=== PATIENT | female | born 1975 | race Hispanic/Latino ===

== ENCOUNTER 2017-08-17 13:58 | Emergency (ER) | payer MEDICARE, OTHER ==
[~2017-08-17] VITALS: Ht 157.5 cm; Wt 108.9 kg
[~2017-08-17 13:58] MED LIST: DYAZIDE 37.5-21 EACH PO
[2017-08-17] MEDS ORDERED: KETOROLAC TROMETHAMINE 60 MG/2 ML VIAL IM ONE (14:30)
[2017-08-17] MEDS ORDERED: LACTULOSE SYRUP 20 GM/30 ML UDC PO ONE (16:15)
[2017-08-17] MEDS ORDERED: CITRATE OF MAGNESIA 300ML BOTTLE PO ONE (16:15)
[2017-08-17] MEDS ORDERED: DOCUSATE SODIUM LIQD 100 MG/10 ML UDC NG ONE (16:15)
--- NOTE | 2017-08-17 16:37 | Diagnostic Imaging Report ---
PROCEDURE:X-RAY ABDOMEN - KUB COMPARISON:None. INDICATIONS:ABDOMINAL PAIN FINDINGS: Limited by body habitus. Nonobstructive bowel gas pattern. No signs of pneumoperitoneum. Moderate to large amount of stool throughout the colon. No calcifications overlying the renal shadows. Right upper quadrant surgical clips, probably related to cholecystectomy. No acute osseous abnormality. Lung bases are clear. CONCLUSION: Nonobstructive bowel gas pattern. possible constipation. Dictated by: Roni Lucas M.D. on 08/17/2017 at 16:37 Electronically approved by: Roni Lucas M.D. on 08/17/2017 at 16:37
[2017-08-17 18:19] VITALS: BP 142/102
== END 2017-08-17 18:30 | disposition home or self-care (01) ==
LOC: ER 13:58
DX: K59.00 Constipation, unspecified (principal); K56.41 Fecal impaction; I10 Essential (primary) hypertension; F32.9 Major depressive disorder, single episode, unspecified
CPT/HCPCS: 74018; 81025; 99284; J1885

== ENCOUNTER 2017-11-01 00:54 | Emergency (ER) | payer MEDICARE ==
[~2017-11-01] VITALS: Ht 157.5 cm; Wt 108.9 kg
--- OUTSIDE RECORDS SUMMARY | 2017-11-01 00:57 | XMS REPORT | Continuity of Care Document ---
Author Author [facility] Organization [facility] Address [address] [place] [address] Phone Unavailable Care Team Providers Care Mobile Service Rv Technician Name Role Phone NONSTAFF PCP Unavailable Insurance Providers Guarantor Heaven Jaramillo Address [address] [place] [address] Email [email or web address] Policy Number [id number] Subscriber's Name Fior Jaramillodad Relationship 18 Self / Same As Patient Group Number [id number] Group Name CYNTHIA MANE Advance Directives Directive Response Recorded Date/Time Does the patient have an advance directive? No 12/27/07 12:54pm If yes, is advance directive on file with [facility]? No 12/27/07 12:54pm If not on file with [facility] will patient provide a copy? No 08/17/17 6:21pm Do you have a Directive to Physician? No 08/17/17 6:21pm Do you have a Medical Power of Shade Bander? No 08/17/17 6:21pm Do you have an out of hospital Do Not Resuscitate Order? No 08/17/17 6:21pm Do you have any special needs we should be aware of? No 08/17/17 6:21pm Do you have a support person here with you today? Yes 08/17/17 6:21pm Did patient receive Notice of Privacy Practices? Yes 08/17/17 6:21pm Did patient receive patient rights and responsibilities? Yes 08/17/17 6:21pm Problems No problem information available. Medications Current Home Medications Medication Dose Units Route Directions Days Qty Instructions Start Date Triamterene/Hydrochlorothiazid (Dyazide 37.5-25 Capsule) 1 Each Capsule 1 Tab Oral Daily Social History Smoking Status Start Date Stop Date Never Smoker Hospital Discharge Instructions No hospital discharge instruction information available. Plan of Care Discharge Date 08/17/17 6:30pm Disposition HOME, SELF-CARE Condition at Discharge Improved Forms Provided Work/School Excuse Prescriptions See Medication Section Referrals LEONID FREED MD Address: [address] [place] [address] NEVIN FREED MD Address: [address] [place] [address] Additional Instructions/Education FOLLOW UP WITH YOU PCP WITHIN 1/2 DAYS FOLLOW UP WITH GI DOCTOR FOR CONSTIPATION Functional Status No functional status information available. Allergies, Adverse Reactions, Alerts Allergen Type Severity Reaction Status Last Updated No Known Drug Allergies Allergy Unknown Active 01/21/08 Immunizations No immunization information available. Vital Signs Acute Vital Signs Vital Response Date/Time Temperature (Fahrenheit) 98.0 degrees F (97.6 - 99.5) 08/17/2017 6:19pm Pulse Pulse Rate (adult) 111 bpm (60 - 90) 08/17/2017 6:19pm Respiratory Rate 20 bpm (12 - 24) 08/17/2017 6:19pm Blood Pressure 142/102 mm Hg 08/17/2017 6:19pm Height 5 ft 2 in 08/17/2017 2:07pm Weight 240 lb 08/17/2017 2:07pm Body Mass Index 43.9 kg/m^2 08/17/2017 2:07pm Results Laboratory Results Test Name Result Units Flags Reference Collection Date/Time Result Date/ Time Comments Urine Test NEGATIVE NEGATIVE 08/17/2017 3:40pm 08/17/2017 3 :55pm Procedures No procedure information available. Encounters Encounter Location Arrival/Admit Date Discharge/Depart Date Attending Provider Departed Emergency Room [facility] 08/17/17 1:58pm 6:30pm EUGENIE LI MD
--- OUTSIDE RECORDS SUMMARY | 2017-11-01 00:57 | XMS REPORT ---
Author Author [facility] Address Unknown Phone Unavailable Care Team Providers Care Electroneurodiagnostic Technician Name Role Phone EUGENIE LI Unavailable Unavailable Problems This patient has no known problems. Allergies, Adverse Reactions, Alerts This patient has no known allergies or adverse reactions. Medications This patient has no known medications. Results Test Description Test Time Test Comments Text Results Atomic Results Result Comments ABDOMEN-1VIEW (KUB) [place] [address] Patient Name: SUZE VERAS MR #: [id number] : 1975 Age/Sex: 41/F Req #: [id number] Adm Physician: Ordered by: AUBREY NERI INDUSTRIAL X RAY OPERATOR Report #: [id number] Location: ER Room/Bed: Procedure: [id number] DX/ABDOMEN-1VIEW (KUB) Exam Date: 08/17/17 Exam Time: 1600 REPORT STATUS: Signed PROCEDURE: X-RAY ABDOMEN - KUB COMPARISON: None. INDICATIONS: ABDOMINAL PAIN FINDINGS: Limited by body habitus. Nonobstructive bowel gas pattern. No signs of pneumoperitoneum. Moderate to large amount of stool throughout the colon. No calcifications overlying the renal shadows. Right upper quadrant surgical clips, probably related to cholecystectomy. No acute osseous abnormality. Lung bases are clear. CONCLUSION: Nonobstructive bowel gas pattern. possible constipation. Dictated by: Roni Castellon M.D. on 08/17/2017 at 16:37 Electronically approved by: Roni Castellon M.D. on 08/17/2017 at 16:37 Dictated By: RONI CASTELLON MD 1637 COPY TO: AUBREY NERI NP
[2017-11-01] MEDS ORDERED: CYCLOBENZAPRINE HCL 10 MG TAB PO ONE (01:30)
[2017-11-01] MEDS ORDERED: HYDROCODONE/APAP 5MG-325MG TAB PO ONE (01:30)
[2017-11-01 02:17] VITALS: BP 117/69
== END 2017-11-01 02:18 | disposition home or self-care (01) ==
LOC: FSED 00:54
DX: M54.42 Lumbago with sciatica, left side (principal)
CPT/HCPCS: 72100; 99283

== ENCOUNTER 2018-08-23 23:47 | Emergency (ER) | payer MEDICARE ==
[~2018-08-23] VITALS: Ht 157.5 cm; Wt 116.3 kg
[2018-08-24] MEDS ORDERED: ALBUTEROL SULF 0.083% NEB SOLN 3 ML NEB NEB STA (00:34)
[2018-08-24] MEDS ORDERED: IPRATROPIUM BROMIDE 0.02% 2.5 ML NEB NEB ONE (00:45)
[2018-08-24] MEDS ORDERED: PREDNISONE 20 MG TAB PO ONE ×2 (00:45)
[2018-08-24] MEDS ORDERED: ACETAMINOPHEN 325 MG TAB PO ONE (00:45)
--- NOTE | 2018-08-24 01:09 | Diagnostic Imaging Report ---
EXAMINATION: CXR 2 VIEW - HOPD INDICATION: Cough, cold, shortness of breath ^[id number] ^[id number] COMPARISON: Chest x-ray of 07/11/2017 none available for review FINDINGS: PA and lateral views TUBES and LINES: None. LUNGS: Lungs are well inflated. There is no evidence of pneumonia or pulmonary edema. Azygos lobe and fissure are present. PLEURA: No pleural effusion or pneumothorax. HEART AND MEDIASTINUM: The cardiomediastinal silhouette is unremarkable.. BONES AND SOFT TISSUES: No focal osseous lesions. Soft tissues are unremarkable. UPPER ABDOMEN: No free air under the diaphragm. IMPRESSION: No acute thoracic abnormality. Signed by: Dr. Otto Lee MD on 08/24/2018 1:06 AM
[2018-08-24 03:31] VITALS: BP 118/67
== END 2018-08-24 02:05 | disposition home or self-care (01) ==
LOC: FSED 23:47
DX: R05 Cough (principal); J20.9 Acute bronchitis, unspecified; J00 Acute nasopharyngitis [common cold]
CPT/HCPCS: 71046; 99283

== ENCOUNTER 2018-08-29 20:24 | Emergency (ER) | payer MEDICARE ==
[~2018-08-29] VITALS: Ht 157.5 cm; Wt 116.1 kg
--- OUTSIDE RECORDS SUMMARY | 2018-08-29 20:27 | XMS REPORT ---
Author [facility] Address Unknown Phone Unavailable Care Team Providers Care Stage Set Up Worker Name Role Phone Antonio SOLIS Unavailable Unavailable Janine LI Unavailable Unavailable Payers Payer Name Policy Type Policy Number Effective Date Expiration Date Problems This patient has no known problems. Allergies, Adverse Reactions, Alerts Allergy Name Allergy Type Status Severity Reaction(s) Onset Date Inactive Date Treating Clinician Comments tramadol DA Active U 2018-08-21 00:00:00 No Known Allergies DA Active U 2018-06-25 00:00:00 No Known Allergies DA Active U 2011-01-20 00:00:00 Medications This patient has no known medications. Results Test Description Test Time Test Comments Text Results Atomic Results Result Comments CXR 2 VIEW - HOPD 2018-08-24 01:05:00 [facility] [address] [place], [place] [address] Patient Name: SUZE VERAS MR #: [id number] : 1975 Age/Sex: 42/F Req #: [id number] Adm Physician: Ordered by: AKUA SOLIS MD Report #: [id number] Location: FS Room/Bed: Procedure: [id number] HOPD/CXR 2 VIEW - HOPD Exam Date: 08/24/18 Exam Time: 44 REPORT STATUS: Signed EXAMINATION: CXR 2 VIEW - HOPD INDICATION: Cough, cold, shortness of breath [id number] COMPARISON: Chest x- ray of 07/11/2017 none available for review FINDINGS: PA and lateral views TUBES and LINES: None. LUNGS: Lungs are well inflated. There is no evidence of pneumonia or pulmonary edema. Azygos lobe and fissure are present. PLEURA: No pleural effusion or pneumothorax. HEART AND MEDIASTINUM: The cardiomediastinal silhouette is unremarkable.. BONES AND SOFT TISSUES: No focal osseous lesions. Soft tissues are unremarkable. UPPER ABDOMEN: No free air under the diaphragm. IMPRESSION: No acute thoracic abnormality. Signed by: Dr. Ron Lee MD on 08/24/2018 1:06 AM Dictated By: RON LEE MD 5 Transcribed By: ALEXEY on 08/24/18105 COPY TO: AKUA SOLIS MD URINALYSIS COMPLETE 2018-08-21 04:12:00 UA COLOR (test code=COLU) YELLOW YELLOW UA APPEARANCE (test code=APPU) SLIGHTLY CLOUDY CLEAR UA GLUCOSE DIPSTICK (test code=DGLUU) NEGATIVE mg/dL NEGATIVE UA BILIRUBIN DIPSTICK (test code=BILU) NEGATIVE mg/dL NEGATIVE UA KETONE DIPSTICK (test code=KETU) Negative mg/dL NEGATIVE UA SPECIFIC GRAVITY (test code=SGU) 1.025 1.001-1.035 UA BLOOD DIPSTICK (test code=RADHA) Negative NEGATIVE UA PH DIPSTICK (test code=CESILIA) 5.0 5.0-8.0 UA PROTEIN DIPSTICK (test code=PROU) 100 (2+) mg/dL NEGATIVE UA UROBILINIOGEN DIPSTICK (test code=URO) NEGATIVE mg/dL NEGATIVE UA NITRITE DIPSTICK (test code=HENRRY) NEGATIVE NEGATIVE UA LEUKOCYTE ESTERASE W REFLEX (test code=LEUUR) NEGATIVE NEGATIVE UA WBC (test code=WBCU) 3-5 per HPF 0-5 IN SOME URINARY TRACT INFECTIONS THERE MAY NOT BE ENOUGHWBCs IN THE URINE TO TRIGGER AN AUTOMATIC (REFLEX) URINECULTURE. A SEPERATE ORDER FOR URINE CULTURE IS RECOMMENDEDIF THERE IS STRONG SUPPORT FOR A URINARY TRACT INFECTIONCLINICALLY. UA RBC (test code=RBCU) 0-2 per HPF 0-5 UA EPITHELIAL CELLS (test code=EPIU) Moderate (5-10/hpf) per HPF Few UA BACTERIA (test code=BACU) MODERATE per HPF NONE UA MUCUS (test code=MUCU) MODERATE per LPF NONE-FEW Urine Source? Clean CatchDRUGS OF ABUSE SCREEN [id number] 04:12:00* Test Item Value Reference Range Comments URN COCAINE (test code=COCAURN) NEGATIVE <300 ng/mL URN CANNABINOIDS (test code=CANNABURN) NEGATIVE <50 ng/mL URN AMPHETAMINE (test code=AMPHETURN) NEGATIVE <1000 ng/mL URN BARBITURATE (test code=BARBITURN) NEGATIVE <200 ng/mL URN BENZODIAZEPINE (test code=BENZOURN) POSITIVE <200 ng/mL This test provides only a preliminary test result. A morespecific alternate chemical method must be used in order toobtain a confirmed analytical result. Gas chromatography/mass spectrometry (GC/MS) is thepreferred confirmatory method. Other chemical confirmationmethods are available. Clinical consideration and professional judgment should be applied to any drug of abusetest result, particularly when preliminary positive resultsare used.Unconfirmed screening results must not be used fornon-medical purposes (e.g., employment testing, legaltesting). URN OPIATES (test code=OPIATURN) NEGATIVE <300 ng/mL URN PHENCYCLIDINE (PCP) (test code=PHENCURN) NEGATIVE <25 ng/mL URN METHADONE (test code=METHAURN) NEGATIVE <300 ng/mL Urine Source? Clean CatchTHYROID PROFILE [id number] 04:03:00* Test Item Value Reference Range Comments T3 UPTAKE (test code=T3UP) 29.0 % 30.0-40.0 T4 (THYROXINE) (test code=T4) 4.8 ug/dL 4.5-13.9 T7 (FREE THYROXINE INDEX) (test code=T7) 1.39 FTI 1.3-5.1 THYROID STIMULATING HORMONE (test code=TSH) 1.450 uIU/mL 0.36-3.74 TSH REFERENCE RANGES: EUTHYROID: 0.35 - 4.3 mIU/mL HYPO : > 5.5 mIU/mL HYPER : < 0.35 mIU/mL URINALYSIS [id number] 03:59:00* Test Item Value Reference Range Comments UA COLOR (test code=COLU) YELLOW YELLOW UA APPEARANCE (test code=APPU) SLIGHTLY CLOUDY CLEAR UA GLUCOSE DIPSTICK (test code=DGLUU) NEGATIVE mg/dL NEGATIVE UA BILIRUBIN DIPSTICK (test code=BILU) NEGATIVE mg/dL NEGATIVE UA KETONE DIPSTICK (test code=KETU) Negative mg/dL NEGATIVE UA SPECIFIC GRAVITY (test code=SGU) 1.025 1.001-1.035 UA BLOOD DIPSTICK (test code=RADHA) Negative NEGATIVE UA PH DIPSTICK (test code=CESILIA) 5.0 5.0-8.0 UA PROTEIN DIPSTICK (test code=PROU) 100 (2+) mg/dL NEGATIVE UA UROBILINIOGEN DIPSTICK (test code=URO) NEGATIVE mg/dL NEGATIVE UA NITRITE DIPSTICK (test code=HENRRY) NEGATIVE NEGATIVE UA LEUKOCYTE ESTERASE W REFLEX (test code=LEUUR) NEGATIVE NEGATIVE UA WBC (test code=WBCU) per HPF 0-5 Urine Source? Clean CatchDRUGS OF ABUSE SCREEN [id number] 03:59:00* Test Item Value Reference Range Comments URN COCAINE (test code=COCAURN) NEGATIVE <300 ng/mL URN CANNABINOIDS (test code=CANNABURN) NEGATIVE <50 ng/mL URN AMPHETAMINE (test code=AMPHETURN) NEGATIVE <1000 ng/mL URN BARBITURATE (test code=BARBITURN) NEGATIVE <200 ng/mL URN BENZODIAZEPINE (test code=BENZOURN) POSITIVE <200 ng/mL This test provides only a preliminary test result. A morespecific alternate chemical method must be used in order toobtain a confirmed analytical result. Gas chromatography/mass spectrometry (GC/MS) is thepreferred confirmatory method. Other chemical confirmationmethods are available. Clinical consideration and professional judgment should be applied to any drug of abusetest result, particularly when preliminary positive resultsare used.Unconfirmed screening results must not be used fornon-medical purposes (e.g., employment testing, legaltesting). URN OPIATES (test code=OPIATURN) NEGATIVE <300 ng/mL URN PHENCYCLIDINE (PCP) (test code=PHENCURN) NEGATIVE <25 ng/mL URN METHADONE (test code=METHAURN) NEGATIVE <300 ng/mL Urine Source? Clean Catch- XR CHEST 2 [id number] 03:50:00 FAX: Kaveh Alistair Cameron Arnoldo [phone] [place]: St: REG Name: SUZE GRAJEDA [facility] : [birth year] Age/S: 42/F [address] [facility] Unit #: [id number] Loc: [place] [address] Phys: Yaritza Lee MD Acct: [id number] Dis Date: Status: REG ER PHONE #: [phone] Exam Date: 08/21/2018 0332 FAX #: [phone] Reason: CHEST PAIN EXAMS: CPT CODE: [id number] XR CHEST 2 V [id number] AFTER HOURS SERVICE ON: 08/21/2018 3:49 AM Chest, PA and Lateral Location Code M12 History: CHEST PAIN Findings: There are no infiltrates. There are no pleural effusions. There is no pneumothorax. Cardiac silhouette and mediastinum appear within normal limits. Impression: No active pulmonary findings. at 0350 Reported and si gned by: Chuy Stovall M.D. CC: Alistair Cameron MD Technologist: Justina Ewing Trnscrd Date/Time/By: 08/21/2018 (0350) : By: [email or web address] Orig Print D/T: S: 08/21/2018 (0354) PAGE 1 Signed Report URINALYSIS COMPLETE 2018-08-21 03:45:00* Test Item Value Reference Range Comments UA COLOR (test code=COLU) YELLOW YELLOW UA APPEARANCE (test code=APPU) SLIGHTLY CLOUDY CLEAR UA GLUCOSE DIPSTICK (test code=DGLUU) NEGATIVE mg/dL NEGATIVE UA BILIRUBIN DIPSTICK (test code=BILU) NEGATIVE mg/dL NEGATIVE UA KETONE DIPSTICK (test code=KETU) Negative mg/dL NEGATIVE UA SPECIFIC GRAVITY (test code=SGU) 1.025 1.001-1.035 UA BLOOD DIPSTICK (test code=RADHA) Negative NEGATIVE UA PH DIPSTICK (test code=CESILIA) 5.0 5.0-8.0 UA PROTEIN DIPSTICK (test code=PROU) 100 (2+) mg/dL NEGATIVE UA UROBILINIOGEN DIPSTICK (test code=URO) NEGATIVE mg/dL NEGATIVE UA NITRITE DIPSTICK (test code=HENRRY) NEGATIVE NEGATIVE UA LEUKOCYTE ESTERASE W REFLEX (test code=LEUUR) NEGATIVE NEGATIVE UA WBC (test code=WBCU) per HPF 0-5 Urine Source? Clean CatchDRUGS OF ABUSE SCREEN [id number] 03:45:00* Test Item Value Reference Range Comments URN COCAINE (test code=COCAURN) <300 ng/mL URN CANNABINOIDS (test code=CANNABURN) <50 ng/mL URN AMPHETAMINE (test code=AMPHETURN) <1000 ng/mL URN BARBITURATE (test code=BARBITURN) <200 ng/mL URN BENZODIAZEPINE (test code=BENZOURN) <200 ng/mL URN OPIATES (test code=OPIATURN) <300 ng/mL URN PHENCYCLIDINE (PCP) (test code=PHENCURN) <25 ng/mL URN METHADONE (test code=METHAURN) <300 ng/mL Urine Source? Clean CatchBASIC METABOLIC [id number] 03:34:00* Test Item Value Reference Range Comments SODIUM (test code=NA) 139 mmol/L 136-145 POTASSIUM (test code=K) 3.1 mmol/L 3.5-5.1 CHLORIDE (test code=CL) 101.0 mmol/L 98-107 CARBON DIOXIDE (test code=CO2) 27.0 mmol/L 21-32 ANION GAP (test code=GAP) 14.1 10-20 GLUCOSE (test code=GLU) 139 mg/dL 74-106 BLOOD UREA NITROGEN (test code=BUN) 12 mg/dL 7-18 GLOMERULAR FILTRATION RATE (test code=GFR) > 60 mL/min >=60 Estimated GFR by using Modified MDRD formula.Chronic kidney disease is defined as either kidney damageor GFR <60 mL/min/1.73 m2 for >3 months. CREATININE (test code=CREAT) 0.80 mg/dL 0.55-1.02 Note change in reference range due to change in reagent. BUN/CREATININE RATIO (test code=BUN/CREA) 14.6 10-20 CALCIUM (test code=CA) 8.1 mg/dL 8.5-10.1 HEPATIC FUNCTION [id number] 03:34:00* Test Item Value Reference Range Comments TOTAL PROTEIN (test code=PROT) 7.4 gram/dL 6.4-8.2 ALBUMIN (test code=ALB) 3.3 g/dL 3.4-5.0 GLOBULIN (test code=GLOB) 4.1 gram/dL 2.7-4.2 ALBUMIN/GLOBULIN RATIO (test code=A/G) 0.8 0.75-1.50 BILIRUBIN TOTAL (test code=BILT) 0.20 mg/dL 0.0-1.0 BILIRUBIN DIRECT (test code=BILD) 0.07 mg/dL 0.0-0.20 SGOT/AST (test code=AST) 19 IUnit/L 15-37 SGPT/ALT (test code=ALT) 24 IUnit/L 12-78 ALKALINE PHOSPHATASE TOTAL (test code=ALKP) 161 IUnit/L 45-117 Note change in reference range due to change in reagent. [id number] 03:34:00* Test Item Value Reference Range Comments LIPASE (test code=LIP) 140 U/L 73.0-393.0 HCG SERUM [id number] 03:34:00* Test Item Value Reference Range Comments HCG SERUM QUAL (test code=HCGQL) NEGATIVE NEGATIVE This HCGQL test is NOT applicable for MALE patients.Check with nurse about probable order error.If Tumor Marker Test needed, nurse should order test "HCGTU"(Test #550.81494) [id number] 03:34:00* Test Item Value Reference Range Comments TROPONIN-I (test code=TROPI) <0.015 ng/mL 0-0.045 BASIC METABOLIC [id number] 03:24:00* Test Item Value Reference Range Comments SODIUM (test code=NA) 139 mmol/L 136-145 POTASSIUM (test code=K) 3.1 mmol/L 3.5-5.1 CHLORIDE (test code=CL) 101.0 mmol/L 98-107 CARBON DIOXIDE (test code=CO2) mmol/L 21-32 ANION GAP (test code=GAP) 10-20 GLUCOSE (test code=GLU) mg/dL 74-106 BLOOD UREA NITROGEN (test code=BUN) mg/dL 7-18 GLOMERULAR FILTRATION RATE (test code=GFR) mL/min >=60 CREATININE (test code=CREAT) mg/dL 0.55-1.02 BUN/CREATININE RATIO (test code=BUN/CREA) 10-20 CALCIUM (test code=CA) mg/dL 8.5-10.1 HEPATIC FUNCTION [id number] 03:24:00* Test Item Value Reference Range Comments TOTAL PROTEIN (test code=PROT) gram/dL 6.4-8.2 ALBUMIN (test code=ALB) g/dL 3.4-5.0 GLOBULIN (test code=GLOB) gram/dL 2.7-4.2 ALBUMIN/GLOBULIN RATIO (test code=A/G) 0.75-1.50 BILIRUBIN TOTAL (test code=BILT) mg/dL 0.0-1.0 BILIRUBIN DIRECT (test code=BILD) mg/dL 0.0-0.20 SGOT/AST (test code=AST) IUnit/L 15-37 SGPT/ALT (test code=ALT) IUnit/L 12-78 ALKALINE PHOSPHATASE TOTAL (test code=ALKP) IUnit/L 45-117 [id number] 03:24:00* Test Item Value Reference Range Comments LIPASE (test code=LIP) U/L 73.0-393.0 HCG SERUM [id number] 03:24:00* Test Item Value Reference Range Comments HCG SERUM QUAL (test code=HCGQL) NEGATIVE NEGATIVE This HCGQL test is NOT applicable for MALE patients.Check with nurse about probable order error.If Tumor Marker Test needed, nurse should order test "HCGTU"(Test #550.26220) [id number] 03:24:00* Test Item Value Reference Range Comments TROPONIN-I (test code=TROPI) ng/mL 0-0.045 BASIC METABOLIC [id number] 03:23:00* Test Item Value Reference Range Comments SODIUM (test code=NA) mmol/L 136-145 POTASSIUM (test code=K) mmol/L 3.5-5.1 CHLORIDE (test code=CL) mmol/L 98-107 CARBON DIOXIDE (test code=CO2) mmol/L 21-32 ANION GAP (test code=GAP) 10-20 GLUCOSE (test code=GLU) mg/dL 74-106 BLOOD UREA NITROGEN (test code=BUN) mg/dL 7-18 GLOMERULAR FILTRATION RATE (test code=GFR) mL/min >=60 CREATININE (test code=CREAT) mg/dL 0.55-1.02 BUN/CREATININE RATIO (test code=BUN/CREA) 10-20 CALCIUM (test code=CA) mg/dL 8.5-10.1 HEPATIC FUNCTION [id number] 03:23:00* Test Item Value Reference Range Comments TOTAL PROTEIN (test code=PROT) gram/dL 6.4-8.2 ALBUMIN (test code=ALB) g/dL 3.4-5.0 GLOBULIN (test code=GLOB) gram/dL 2.7-4.2 ALBUMIN/GLOBULIN RATIO (test code=A/G) 0.75-1.50 BILIRUBIN TOTAL (test code=BILT) mg/dL 0.0-1.0 BILIRUBIN DIRECT (test code=BILD) mg/dL 0.0-0.20 SGOT/AST (test code=AST) IUnit/L 15-37 SGPT/ALT (test code=ALT) IUnit/L 12-78 ALKALINE PHOSPHATASE TOTAL (test code=ALKP) IUnit/L 45-117 [id number] 03:23:00* Test Item Value Reference Range Comments LIPASE (test code=LIP) U/L 73.0-393.0 HCG SERUM [id number] 03:23:00* Test Item Value Reference Range Comments HCG SERUM QUAL (test code=HCGQL) NEGATIVE NEGATIVE This HCGQL test is NOT applicable for MALE patients.Check with nurse about probable order error.If Tumor Marker Test needed, nurse should order test "HCGTU"(Test #550.26577) [id number] 03:23:00* Test Item Value Reference Range Comments TROPONIN-I (test code=TROPI) ng/mL 0-0.045 CBC W/O [id number] 03:14:00* Test Item Value Reference Range Comments WHITE BLOOD CELL (test code=WBC) 14.1 K/mm3 4.5-12.5 RED BLOOD CELL (test code=RBC) 4.25 mill/mm3 3.7-5.2 HEMOGLOBIN (test code=HGB) 12.8 gram/dL 11.5-15.5 HEMATOCRIT (test code=HCT) 38.5 % 36.0-46.0 MEAN CELL VOLUME (test code=MCV) 90.6 fL 80-98 MEAN CELL HGB (test code=MCH) 30.1 picogram 27.0-33.0 MEAN CELL HGB CONCETRATION (test code=MCHC) 33.2 gram/dL 33.0-36.0 RED CELL DISTRIBUTION WIDTH (test code=RDW) 14.7 % 11.6-16.2 PLATELET COUNT (test code=PLT) 323 K/mm3 150-450 MEAN PLATELET VOLUME (test code=MPV) 10.2 fL 6.7-11.0 CBC W/O [id number] 03:07:00* Test Item Value Reference Range Comments WHITE BLOOD CELL (test code=WBC) K/mm3 4.5-12.5 RED BLOOD CELL (test code=RBC) mill/mm3 3.7-5.2 HEMOGLOBIN (test code=HGB) 12.8 gram/dL 11.5-15.5 HEMATOCRIT (test code=HCT) 38.5 % 36.0-46.0 MEAN CELL VOLUME (test code=MCV) fL 80-98 MEAN CELL HGB (test code=MCH) picogram 27.0-33.0 MEAN CELL HGB CONCETRATION (test code=MCHC) gram/dL 33.0-36.0 RED CELL DISTRIBUTION WIDTH (test code=RDW) % 11.6-16.2 PLATELET COUNT (test code=PLT) K/mm3 150-450 MEAN PLATELET VOLUME (test code=MPV) fL 6.7-11.0 ABDOMEN-1VIEW (KUB) [place] [address] Patient Name: SUZE VERAS MR #: [id number] : 1975 Age/Sex: 41/F Req #: [id number] Adm Physician: Ordered by: AUBREY NERI ADVERTISING SUPERVISOR Report #: [id number] Location: ER Room/Bed: Procedure: [id number] DX/ABDOMEN-1VIEW (KUB) Exam Date: 08/17/17 Exam Time: 1600 REPORT STATUS: S igned PROCEDURE: X-RAY ABDOMEN - KUB COMPARISON: None. INDICA TIONS: ABDOMINAL PAIN FINDINGS: Limited by body habitus. Nonobstr uctive bowel gas pattern. No signs of pneumoperitoneum. Moderate to large francia unt of stool throughout the colon. No calcifications overlying the renal shado ws. Right upper quadrant surgical clips, probably related to cholecystectom y. No acute osseous abnormality. Lung bases are clear. CONCLUSION: Nonobstructive bowel gas pattern. possible constipation. Dictated by: Roni Castellon M.D. on 08/17/2017 at 16:37 Electronically ap proved by: Roni Castellon M.D. on 08/17/2017 at 16:37 Dictated By: RONI CASTELLON MD 16 37 Transcribed By: JESSICA on 08/17/17 0767 COPY TO: AUBREY NERI NP
[2018-08-29] MEDS ORDERED: ALBUTEROL/IPRATROPIUM 3 ML NEB NEB ONE (21:00)
--- NOTE | 2018-08-29 21:51 | Diagnostic Imaging Report ---
EXAMINATION: CHEST 2 VIEWS INDICATION: SOB COMPARISON: Chest x-ray 08/24/2018 FINDINGS: PA and lateral views TUBES and LINES: None. LUNGS: Azygos lobe and fissure. There is no evidence of pneumonia or pulmonary edema. PLEURA: No pleural effusion or pneumothorax. HEART AND MEDIASTINUM: The cardiomediastinal silhouette is unremarkable. BONES AND SOFT TISSUES: No acute osseous lesion. Soft tissues are unremarkable. UPPER ABDOMEN: No free air under the diaphragm. IMPRESSION: No acute thoracic abnormality. Signed by: DR. Esau Dang MD on 08/29/2018 9:47 PM
[2018-08-29 22:27] VITALS: BP 162/90
== END 2018-08-29 22:15 | disposition home or self-care (01) ==
LOC: ER 20:24
DX: R05 Cough (principal); J20.9 Acute bronchitis, unspecified; I10 Essential (primary) hypertension; J44.9 Chronic obstructive pulmonary disease, unspecified; E78.5 Hyperlipidemia, unspecified; F31.9 Bipolar disorder, unspecified; Z87.891 Personal history of nicotine dependence
CPT/HCPCS: 71046; 94640; 99283

== ENCOUNTER 2018-11-24 21:08 | Emergency (ER) | payer MEDICARE ==
[~2018-11-24] VITALS: Ht 157.5 cm; Wt 116.1 kg
[2018-11-24] MEDS ORDERED: IBUPROFEN 600 MG TAB PO STA (21:31)
[2018-11-24] MEDS ORDERED: CLONIDINE HCL 0.1 MG TAB PO ONE (21:45)
[2018-11-24] MEDS ORDERED: IBUPROFEN 200 MG TAB ONE (21:53)
[2018-11-24] MEDS ORDERED: CLONIDINE HCL 0.1 MG TAB ONE ×2 (21:53→22:39)
--- NOTE | 2018-11-24 22:20 | Diagnostic Imaging Report ---
RIGHT KNEE X-RAY - 2 VIEWS HISTORY: Fall 2 weeks ago COMPARISON: None available. FINDINGS: Bones: No acute displaced fracture. Osseous alignment is within normal limits. Joints: The joint spaces are well-maintained. Soft tissues: The soft tissues appear unremarkable. IMPRESSION: No acute radiographic abnormality. Signed by: Dr. Karen Faustin M.D. on 11/24/2018 10:17 PM
--- NOTE | 2018-11-24 22:21 | Diagnostic Imaging Report ---
LEFT KNEE X-RAY - 2 VIEWS HISTORY: Fall 2 weeks ago COMPARISON: None available. FINDINGS: Bones: No acute displaced fracture. Osseous alignment is within normal limits. Joints: The joint spaces are well-maintained. Soft tissues: The soft tissues appear unremarkable. IMPRESSION: No acute radiographic abnormality. Signed by: Dr. Karen Faustin M.D. on 11/24/2018 10:18 PM
[2018-11-24] MEDS ORDERED: HYDROCODONE/APAP 5MG-325MG TAB ONE (22:42)
[2018-11-24] MEDS ORDERED: HYDROCODONE/APAP 5MG-325MG TAB PO ONE (22:45)
[2018-11-24] MEDS ORDERED: CLONIDINE HCL 0.2 MG TAB PO ONE (22:45)
[2018-11-24 23:52] VITALS: BP 155/79
== END 2018-11-24 23:54 | disposition home or self-care (01) ==
LOC: FSED 21:08
DX: M25.562 Pain in left knee (principal); M25.561 Pain in right knee; S83.412A Sprain of medial collateral ligament of left knee, initial encounter; S83.411A Sprain of medial collateral ligament of right knee, initial encounter; R26.2 Difficulty in walking, not elsewhere classified; W18.30XA Fall on same level, unspecified, initial encounter; J44.9 Chronic obstructive pulmonary disease, unspecified; F31.9 Bipolar disorder, unspecified
CPT/HCPCS: 81025; 99283

== ENCOUNTER 2019-03-22 00:16 | Emergency (ER) | payer MEDICARE ==
[~2019-03-22] VITALS: Ht 157.5 cm; Wt 109.8 kg
[2019-03-22] MEDS ORDERED: CLONIDINE HCL 0.1 MG TAB ONE (00:54)
[2019-03-22] MEDS ORDERED: HYDROCODONE/APAP 5MG-325MG TAB ONE (00:55)
[2019-03-22] MEDS ORDERED: CLONIDINE HCL 0.1 MG TAB PO ONE (01:00)
[2019-03-22] MEDS ORDERED: HYDROCODONE/APAP 5MG-325MG TAB PO ONE (01:00)
[2019-03-22] MEDS ORDERED: ONDANSETRON HCL 4 MG ORAL DISINTEGRATING TAB ONE (01:30)
[2019-03-22] MEDS ORDERED: MORPHINE SULFATE INJ 4 MG/ML INJ 1ML ONE (01:30)
[2019-03-22] MEDS ORDERED: MORPHINE SULFATE 5 MG/ML VIAL IM ONE (01:30)
[2019-03-22] MEDS ORDERED: ONDANSETRON HCL 4 MG ORAL DISINTEGRATING TAB PO ONE (01:30)
[2019-03-22 02:39] VITALS: BP 164/92
--- NOTE | 2019-03-22 13:17 | NUR ---
[facility] pharmacy called and asked about filling prescriptions as pt is already taking lorazepam at home and now getting 2 other sedating medications prescribed. Told them to call back on 03/23/[address] Felix will be working then and can answer that question as he seen the pt and no one working today has knowledge of this pt.
== END 2019-03-22 03:03 | disposition home or self-care (01) ==
LOC: FSED 00:16
DX: G43.019 Migraine without aura, intractable, without status migrainosus (principal); V43.62XA Car passenger injured in collision with other type car in traffic accident, initial encounter; Y92.488 Other paved roadways as the place of occurrence of the external cause; I10 Essential (primary) hypertension
CPT/HCPCS: 96372; 99282; J2270; Q0162

== ENCOUNTER → 2019-07-29 | Day surgery (SDC) | payer MEDICARE ==
[~2019-07-29] MED LIST changes: +ACETAMINOPHEN 1000 MG/100 ML 100 ML IV ONE; +ACETAMINOPHEN/CODEINE 300MG - 30MG TAB ONE; +BUPIVACAINE 0.25% 30ML SDV INJ ONE; +BUPIVACAINE 0.5%/EPI 30 ML SDV INJ ONE; +CARIPRAZINE PO; +CRESTOR10 MG PO; +DEXAMETHASONE SOD PHOS INJ 4 MG/ML VIAL ONE; +EPHEDRINE SULFATE INJ 50 MG/ML VIAL ONE; +FENTANYL CITRATE/PF 100MCG/2 ML INJ ONE; +GLYCOPYRROLATE INJ 0.2 MG/ML VIAL ONE; +HYDROMORPHONE 2MG/ML 2 MG/ML ML ONE; +LIDOCAINE HCL 2% LOCAL INJ 5 ML SDV VIAL INJ ONE; +MEPERIDINE HCL INJ 25 MG/ML VIAL ONE; +METFORMIN HCL500 MG PO; +METOPROLOL TART25 MG PO; +MIDAZOLAM HCL 2 MG/2 ML VIAL ONE; +NALOXONE HCL INJ 0.4 MG/ML AMP ONE; +ONDANSETRON HCL INJ 2MG/ML 2ML 2 MG/ML VIAL ONE; +PROAIR HFA INH8.5 GM INH; +PROPOFOL IV EMULSION 10 MG/ML 20 ML VIAL ONE; +ROCURONIUM BROMIDE 10 MG/ML 5ML VIAL ONE; +SEVOFLURANE INHAL SOLN 250 ML PEN BTL ONE; +SUGAMMADEX SODIUM 200 MG/2 ML VIAL IV ONE; +TRILEPTAL300 MG PO; +[UNRECOGNIZED DRUG - OTHER] PO
[2019-07-29 07:35] LABS: HEMATOCRIT 37.5 % (34.2-44.1); HEMOGLOBIN 12.6 g/dL (12.0-16.0); MEAN CORPUSCULAR VOLUME 88.4 fL (81-99); RED BLOOD COUNT 4.24 x10e6/uL (3.6-5.1)
[2019-07-29 07:36] LABS: BASOPHILS % 0.6 % (0.0-1.0); EOSINOPHILS % 1.6 % (0.0-6.0); LYMPHOCYTES % 24.4 % (18.0-39.1); MEAN CORPUSCULAR HEMOGLOBIN 29.7 pg (28-32); MEAN CORPUSCULAR HGB CONC 33.6 g/dL (31-35); MONOCYTES % 8.2 % (4.4-11.3); NEUTROPHILS % 63.8 % (38.7-80.0); PLATELET COUNT 323 x10e3/uL (140-360); RED CELL DISTRIBUTION WIDTH 15.1 % (11.7-14.4)
[2019-07-29 09:14] LABS: BASOPHILS # (AUTO) 0.1 (0.0-0.1); EOSINOPHILS # (AUTO) 0.2 (0.0-0.4); NEUTROPHILS # (AUTO) 7.7 (2.1-6.9)
[2019-07-29 12:07] VITALS: BP 138/88
--- NOTE | 2019-07-29 17:24 | Operative Report ---
DATE OF PROCEDURE: 07/29/2019 SURGEON: Fernanda Dawn MD PREOPERATIVE DIAGNOSIS: Pelvic pain. POSTOPERATIVE DIAGNOSIS: Pelvic pain. PROCEDURE: Laparoscopy, single port division of adhesions. COMPLICATIONS: None. ESTIMATED BLOOD LOSS: Minimal. DESCRIPTION OF PROCEDURE: The patient was taken to the OR. General anesthesia was placed. She was prepped and draped in a normal sterile fashion, placed in dorsal lithotomy position. A HUMI self-retaining uterine manipulator was passed through the cervix into the uterine cavity and balloon was inflated with 5 mL of air. Two Allis clamps were applied to the umbilicus. An infraumbilical skin incision was made with a scalpel about 3 cm incision was made and using the S-shaped retractors, the rectus fascia was identified, picked up with 2 Pedro's and opened in the midline using the knife. At this stage we encountered about 20-30 mL of blood that stopped on pressure. Following this, the parietal peritoneum was held with 2 Pedro's and cut in between with a knife. Peritoneal cavity was entered and the peritoneum was extended vertically using curved Gallagher scissors. The GelPOINT was placed and secured and the abdomen was inflated with carbon dioxide. The patient was placed in the Trendelenburg position and 5 mm camera scope was inserted and showed adhesions of the omentum to the anterior abdominal wall below the umbilicus and using the LigaSure this was lysed and removed. The patient's uterus was noted. The left ovary and tube looked normal apart from tubal ligation. The right adnexa were absent. No evidence of excessive adhesions or endometriosis in the pelvis. Instruments were removed from the abdomen and the GelPOINT was removed. The abdomen was deflated. The rectus fascia approximated using Vicryl 0 stitch and skin was closed with subcu Vicryl 4-0. The patient tolerated the procedure well. Lap, instrument, and needle counts were correct x2 at the end of the procedure. Fernanda Dawn MD DD/MODL /[id number]
== END | disposition home or self-care (01) ==
LOC: OR 05:56
PROVIDERS: ATTEND Obstetrics & Gynecology
DX: N73.6 Female pelvic peritoneal adhesions (postinfective) (principal); Z90.721 Acquired absence of ovaries, unilateral; Z98.890 Other specified postprocedural states; J44.9 Chronic obstructive pulmonary disease, unspecified; G47.33 Obstructive sleep apnea (adult) (pediatric); E11.9 Type 2 diabetes mellitus without complications; K21.9 Gastro-esophageal reflux disease without esophagitis; E78.6 Lipoprotein deficiency; Z88.6 Allergy status to analgesic agent; Z91.048 Other nonmedicinal substance allergy status; Z79.84 Long term (current) use of oral hypoglycemic drugs
CPT/HCPCS: 36415; 58660; 81025; 82948; 84702; 85025; 86850; 86900; 93005; J0131; J1100; J1170; J2001; J2175; J2250; J2405; J2704; J3010; J2310

== ENCOUNTER → 2020-06-03 | Day surgery (SDC) | payer MEDICARE ==
[2020-05-31 15:35] LABS: BASOPHILS # (AUTO) 0.1 (0.0-0.1); BASOPHILS % 0.7 % (0.0-1.0); EOSINOPHILS # (AUTO) 0.2 (0.0-0.4); EOSINOPHILS % 1.2 % (0.0-6.0); HEMATOCRIT 39.1 % (34.2-44.1); HEMOGLOBIN 12.6 g/dL (12.0-16.0); LYMPHOCYTES # (AUTO) 2.3 (1.0-3.2); LYMPHOCYTES % 18.1 % (18.0-39.1); MEAN CORPUSCULAR HEMOGLOBIN 28.6 pg (28-32); MEAN CORPUSCULAR HGB CONC 32.2 g/dL (31-35); MEAN CORPUSCULAR VOLUME 88.9 fL (81-99); MONOCYTES % 7.4 % (4.4-11.3); NEUTROPHILS # (AUTO) 8.3 (2.1-6.9); NEUTROPHILS % 63.9 % (38.7-80.0); PLATELET COUNT 473 x10e3/uL (140-360)
[~2020-06-03] MED LIST changes: -ACETAMINOPHEN 1000 MG/100 ML 100 ML IV ONE; -ACETAMINOPHEN/CODEINE 300MG - 30MG TAB ONE; -BUPIVACAINE 0.25% 30ML SDV INJ ONE; -BUPIVACAINE 0.5%/EPI 30 ML SDV INJ ONE; -DEXAMETHASONE SOD PHOS INJ 4 MG/ML VIAL ONE; -EPHEDRINE SULFATE INJ 50 MG/ML VIAL ONE; -GLYCOPYRROLATE INJ 0.2 MG/ML VIAL ONE; -HYDROMORPHONE 2MG/ML 2 MG/ML ML ONE; +LEVOTHYROXINE75 MCG PO; -MEPERIDINE HCL INJ 25 MG/ML VIAL ONE; -NALOXONE HCL INJ 0.4 MG/ML AMP ONE; -ONDANSETRON HCL INJ 2MG/ML 2ML 2 MG/ML VIAL ONE; -ROCURONIUM BROMIDE 10 MG/ML 5ML VIAL ONE; -SEVOFLURANE INHAL SOLN 250 ML PEN BTL ONE; -SUGAMMADEX SODIUM 200 MG/2 ML VIAL IV ONE; +VRAYLAR6 MG PO
[2020-06-03 08:55] VITALS: BP 105/65
== END | disposition home or self-care (01) ==
LOC: OR 06:08
PROVIDERS: ATTEND Internal Medicine Gastroenterology
DX: K59.00 Constipation, unspecified (principal); K29.50 Unspecified chronic gastritis without bleeding; K44.9 Diaphragmatic hernia without obstruction or gangrene; K57.30 Diverticulosis of large intestine without perforation or abscess without bleeding; K64.8 Other hemorrhoids; Z71.3 Dietary counseling and surveillance; I10 Essential (primary) hypertension; E11.9 Type 2 diabetes mellitus without complications; E66.01 Morbid (severe) obesity due to excess calories; J44.9 Chronic obstructive pulmonary disease, unspecified; E78.5 Hyperlipidemia, unspecified; N20.0 Calculus of kidney; I51.7 Cardiomegaly; F31.9 Bipolar disorder, unspecified; F41.9 Anxiety disorder, unspecified; Z88.6 Allergy status to analgesic agent; Z01.810 Encounter for preprocedural cardiovascular examination; Z01.812 Encounter for preprocedural laboratory examination; Z20.828 Contact with and (suspected) exposure to other viral communicable diseases; Z68.42 Body mass index [BMI] 45.0-49.9, adult
CPT/HCPCS: 36415; 43239; 45378; 81025; 85025; 93005; J2001; J2250; J2704; J3010; U0002

== ENCOUNTER 2020-10-25 07:05 | Inpatient (IN) | payer MEDICARE ==
[2020-10-21 09:45] LABS: BASOPHILS # (AUTO) 0.1 (0.0-0.1); BASOPHILS % 0.6 % (0.0-1.0); EOSINOPHILS # (AUTO) 0.2 (0.0-0.4); EOSINOPHILS % 1.8 % (0.0-6.0); HEMOGLOBIN 11.5 g/dL (12.0-16.0); LYMPHOCYTES % 22.3 % (18.0-39.1); MEAN CORPUSCULAR HEMOGLOBIN 29.9 pg (28-32); MEAN CORPUSCULAR HGB CONC 32.9 g/dL (31-35); MEAN CORPUSCULAR VOLUME 90.9 fL (81-99); MONOCYTES # (AUTO) 0.8 (0.2-0.8); MONOCYTES % 9.3 % (4.4-11.3); NEUTROPHILS # (AUTO) 5.8 (2.1-6.9); NEUTROPHILS % 64.1 % (38.7-80.0); PLATELET COUNT 331 x10e3/uL (140-360); RED BLOOD COUNT 3.85 x10e6/uL (3.6-5.1); RED CELL DISTRIBUTION WIDTH 13.3 % (11.7-14.4)
[~2020-10-25] VITALS: Ht 157.5 cm; Wt 109.8 kg
[~2020-10-25 07:05] MED LIST changes: +AMBIEN10 MG PO; +COREG12.5 MG PO; +DIOVAN160 MG PO; -FENTANYL CITRATE/PF 100MCG/2 ML INJ ONE; +KLONOPIN1 MG PO; -LIDOCAINE HCL 2% LOCAL INJ 5 ML SDV VIAL INJ ONE; +LYRICA75 MG PO; -MIDAZOLAM HCL 2 MG/2 ML VIAL ONE; -PROPOFOL IV EMULSION 10 MG/ML 20 ML VIAL ONE; +RISPERIDONE1 MG PO; +TRAZODONE HCL100 MG PO; +VIT D PO; +VYVANSE60 M1 PO; +ZOLOFT100 MG PO
[2020-10-25] MEDS ORDERED: CEFAZOLIN SOD 1 GM/NS 50ML 100 ML IV ONE (08:18)
[2020-10-25] MEDS ORDERED: METFORMIN PO (08:53)
[2020-10-25] MEDS ORDERED: INSULIN SQ (08:54)
[2020-10-25 09:10] LABS: ANION GAP 12.9 mmol/L (8-16); BLOOD UREA NITROGEN 19 mg/dL (7-26); BUN/CREATININE RATIO 23 (6-25); CALCIUM 8.8 mg/dL (8.4-10.2); CARBON DIOXIDE 21 mmol/L (22-29); CHLORIDE 108 mmol/L (98-107); CREATININE, SERUM 0.84 mg/dL (0.57-1.11); EST GLOMERULAR FILTRATION RATE > 60 ML/MIN (60-); GLUCOSE 124 mg/dL (74-118); POTASSIUM 3.9 mmol/L (3.5-5.1); SODIUM 138 mmol/L (136-145)
[2020-10-25] MEDS ORDERED: LIDOCAINE HCL (LTA) 4 ML SOLN ONE (09:11)
[2020-10-25] MEDS ORDERED: SCOPOLAMINE 1.5 MG PATCH ONE (09:11)
[2020-10-25] MEDS ORDERED: ACETAMINOPHEN 1000 MG/100 ML 100 ML IV ONE (09:11)
[2020-10-25] MEDS ORDERED: BUPIVACAINE 0.25% 30ML SDV ONE (09:13)
[2020-10-25] MEDS ORDERED: FAMOTIDINE 20 MG/2 ML VIAL IV ONE (09:26)
[2020-10-25] MEDS ORDERED: HYDROMORPHONE 1MG/1ML INJ ONE (12:25)
[2020-10-25] MEDS ORDERED: METOCLOPRAMIDE HCL 10 MG/2ML VIAL ONE (12:26)
[2020-10-25] MEDS ORDERED: ONDANSETRON HCL INJ 2MG/ML 2ML 2 MG/ML VIAL ONE ×2 (12:26→17:52)
[2020-10-25] MEDS ORDERED: FENTANYL CITRATE/PF 100MCG/2 ML INJ ONE (13:00)
[2020-10-25 13:41] VITALS: BP 136/88
[2020-10-25] MEDS: SODIUM CHLORIDE 0.9% 1000ML 1,000 ML IV SCH ×2 (13:59→21:45)
[2020-10-25] MEDS: MORPHINE SULFATE INJ 2 MG/ML SYR IV PRN ×4 (14:05→20:54)
[2020-10-25 14:06] VITALS: BP 159/100
[2020-10-25] MEDS ORDERED: LANTUS 3ML100 UNITS/ SQ (14:11)
[2020-10-25 16:05] VITALS: BP 168/106
[2020-10-25] MEDS ORDERED: HYDRALAZINE HCL 20 MG/ML VIAL IV PRN (16:15)
[2020-10-25] MEDS: ENOXAPARIN SOD INJ 40 MG/0.4 ML SYR SC SCH (16:27)
[2020-10-25] MEDS: ONDANSETRON HCL INJ 2MG/ML 2ML 2 MG/ML VIAL IV PRN ×2 (17:07→23:07)
[2020-10-25] MEDS ORDERED: LIDOCAINE HCL 2% LOCAL INJ 5 ML SDV VIAL INJ ONE (17:52)
[2020-10-25] MEDS ORDERED: PROPOFOL IV EMULSION 10 MG/ML 20 ML VIAL ONE (17:52)
[2020-10-25] MEDS ORDERED: DEXAMETHASONE SOD PHOS INJ 4 MG/ML VIAL ONE (17:52)
[2020-10-25] MEDS ORDERED: ROCURONIUM BROMIDE 10 MG/ML 5ML VIAL IV ONE (17:52)
[2020-10-25] MEDS ORDERED: POVIDONE IODINE 0.05% 0.05 % ML PO ONE (17:52)
[2020-10-25] MEDS ORDERED: ATROPINE SULFATE 1 MG/ML VIAL ONE (17:52)
[2020-10-25] MEDS ORDERED: PHENYLEPHRINE HCL 1% 10 MG/ML VIAL ONE (17:52)
[2020-10-25] MEDS ORDERED: SEVOFLURANE INHAL SOLN 250 ML PEN BTL ONE (17:52)
[2020-10-25] MEDS ORDERED: NEOSTIGMINE 1 MG/ML 10ML VIAL ONE (17:52)
[2020-10-25] MEDS ORDERED: GLYCOPYRROLATE INJ 0.2 MG/ML VIAL ONE (17:52)
[2020-10-25] MEDS ORDERED: EPHEDRINE SULFATE INJ 50 MG/ML VIAL ONE (17:52)
[2020-10-25 20:00] VITALS: BP 131/82
[2020-10-25 22:13] VITALS: BP 131/82
[2020-10-25] MEDS: HYDROMORPHONE 1MG/1ML INJ IV PRN (23:07)
[2020-10-26] VITALS: BP 127/83
[2020-10-26] MEDS: HYDROMORPHONE 1MG/1ML INJ IV PRN ×4 (02:11→11:57)
[2020-10-26 04:00] VITALS: BP 137/86
[2020-10-26] MEDS ORDERED: HYDROCODONE/APAP 7.5MG-325MG 1 EA TAB PO PRN (05:00)
[2020-10-26 05:23] LABS: BASOPHILS % 0.3 % (0.0-1.0); EOSINOPHILS # (AUTO) 0.1 (0.0-0.4); EOSINOPHILS % 0.4 % (0.0-6.0); HEMOGLOBIN 11.5 g/dL (12.0-16.0); LYMPHOCYTES # (AUTO) 1.7 (1.0-3.2); MEAN CORPUSCULAR HEMOGLOBIN 29.7 pg (28-32); MEAN CORPUSCULAR HGB CONC 32.9 g/dL (31-35); MEAN CORPUSCULAR VOLUME 90.4 fL (81-99); MONOCYTES # (AUTO) 1.1 (0.2-0.8); MONOCYTES % 9.5 % (4.4-11.3); NEUTROPHILS # (AUTO) 8.9 (2.1-6.9); NEUTROPHILS % 74.8 % (38.7-80.0); PLATELET COUNT 310 x10e3/uL (140-360); RED BLOOD COUNT 3.87 x10e6/uL (3.6-5.1); RED CELL DISTRIBUTION WIDTH 13.8 % (11.7-14.4)
[2020-10-26 05:43] LABS: ANION GAP 15.5 mmol/L (8-16); BLOOD UREA NITROGEN 10 mg/dL (7-26); BUN/CREATININE RATIO 14 (6-25); CARBON DIOXIDE 19 mmol/L (22-29); CHLORIDE 106 mmol/L (98-107); CREATININE, SERUM 0.73 mg/dL (0.57-1.11); EST GLOMERULAR FILTRATION RATE > 60 ML/MIN (60-); GLUCOSE 131 mg/dL (74-118); MAGNESIUM 1.7 MG/DL (1.3-2.1); PHOSPHORUS 2.2 MG/DL (2.3-4.7); POTASSIUM 3.5 mmol/L (3.5-5.1); SODIUM 137 mmol/L (136-145)
[2020-10-26] MEDS: SODIUM CHLORIDE 0.9% 1000ML 1,000 ML IV SCH ×2 (07:43→11:52)
[2020-10-26 07:57] VITALS: BP 137/74
[2020-10-26 08:00] VITALS: BP 137/74
[2020-10-26] MEDS: ENOXAPARIN SOD INJ 40 MG/0.4 ML SYR SC SCH (08:19)
[2020-10-26] MEDS ORDERED: SIMVASTATIN 40 MG TAB PO SCH (09:00)
[2020-10-26] MEDS ORDERED: CARVEDILOL 12.5 MG TAB PO SCH (09:00)
[2020-10-26] MEDS ORDERED: OXCARBAZEPINE 300 MG TAB PO SCH (09:00)
[2020-10-26 11:52] VITALS: BP 129/88
[2020-10-26] MEDS: ONDANSETRON HCL INJ 2MG/ML 2ML 2 MG/ML VIAL IV PRN (11:57)
[2020-10-26] MEDS ORDERED: LEVOTHYROXINE SODIUM 75 MCG TAB PO SCH (21:00)
[2020-10-26] MEDS ORDERED: TRAZODONE HCL 50 MG TAB PO SCH (21:00)
[2020-10-26] MEDS ORDERED: SERTRALINE HCL 100 MG TAB PO SCH (21:00)
== END 2020-10-26 12:25 | disposition home or self-care (01) | DRG 621 ==
LOC: OR 07:05 → PACU V 13:24 → MED/SURG 13:40
PROVIDERS: ADMIT Internal Medicine; ATTEND Internal Medicine
PROC: 0D164ZA Bypass Stomach to Jejunum, Percutaneous Endoscopic Approach (ICD-10-PCS; principal; 2020-10-25 09:00)
DX: E66.01 Morbid (severe) obesity due to excess calories (principal); K21.9 Gastro-esophageal reflux disease without esophagitis; G47.33 Obstructive sleep apnea (adult) (pediatric); E11.9 Type 2 diabetes mellitus without complications; F41.9 Anxiety disorder, unspecified; F32.9 Major depressive disorder, single episode, unspecified; K44.9 Diaphragmatic hernia without obstruction or gangrene; Z68.42 Body mass index [BMI] 45.0-49.9, adult; Z20.822 Contact with and (suspected) exposure to COVID-19
CPT/HCPCS: 36415; 71046; 80048; 81025; 82948; 83735; 84100; 85025; 93005; 94660; 96361; J0360; J0461; J0690; J1100; J1170; J1650; J2001; J2270; J2370; J2405; J2710; J2765; J3010; J7030; U0002

== ENCOUNTER 2020-11-14 14:33 | Emergency (ER) | payer MEDICARE ==
[~2020-11-14] VITALS: Ht 157.5 cm; Wt 119.7 kg
[~2020-11-14 14:33] MED LIST changes: +INSULIN SQ; +LANTUS 3ML100 UNITS/ SQ; +METFORMIN PO
[2020-11-14] MEDS ORDERED: PANTOPRAZOLE 40 MG 10ML VIAL IV STA (15:00)
[2020-11-14] MEDS ORDERED: ONDANSETRON HCL INJ 2MG/ML 2ML 2 MG/ML VIAL IV STA (15:00)
[2020-11-14] MEDS ORDERED: SODIUM CHLORIDE 0.9% 1000ML 1,000 ML IV STA (15:00)
[2020-11-14 15:14] LABS: BASOPHILS # (AUTO) 0.1 (0.0-0.1); BASOPHILS % 0.5 % (0.0-1.0); EOSINOPHILS # (AUTO) 0.1 (0.0-0.4); EOSINOPHILS % 0.8 % (0.0-6.0); HEMATOCRIT 33.2 % (34.2-44.1); HEMOGLOBIN 10.8 g/dL (12.0-16.0); LYMPHOCYTES % 14.7 % (18.0-39.1); MEAN CORPUSCULAR HEMOGLOBIN 28.8 pg (28-32); MEAN CORPUSCULAR HGB CONC 32.5 g/dL (31-35); MEAN CORPUSCULAR VOLUME 88.5 fL (81-99); MONOCYTES % 7.4 % (4.4-11.3); NEUTROPHILS # (AUTO) 10.2 (2.1-6.9); NEUTROPHILS % 73.4 % (38.7-80.0); PLATELET COUNT 550 x10e3/uL (140-360); RED BLOOD COUNT 3.75 x10e6/uL (3.6-5.1); RED CELL DISTRIBUTION WIDTH 13.9 % (11.7-14.4)
[2020-11-14] MEDS ORDERED: DICYCLOMINE HCL 20 MG/2 ML VIAL IM ONE (15:15)
[2020-11-14 15:18] LABS: INR 1.01; PARTIAL THROMBOPLASTIN TIME 25.7 seconds (23.8-35.5); PROTHROMBIN TIME 13.9 seconds (11.9-14.5)
[2020-11-14 15:36] LABS: ALANINE AMINOTRANSFERASE 23 IU/L (0-55); ALBUMIN 3.7 g/dL (3.5-5.0); ALBUMIN/GLOBULIN RATIO 0.8 (0.8-2.0); ALKALINE PHOSPHATASE 95 IU/L (40-150); ANION GAP 22.7 mmol/L (8-16); BLOOD UREA NITROGEN 11 mg/dL (7-26); BUN/CREATININE RATIO 14 (6-25); CALCIUM 8.7 mg/dL (8.4-10.2); CARBON DIOXIDE 20 mmol/L (22-29); CHLORIDE 97 mmol/L (98-107); EST GLOMERULAR FILTRATION RATE > 60 ML/MIN (60-); GLUCOSE 102 mg/dL (74-118); MAGNESIUM 2.3 MG/DL (1.3-2.1); POTASSIUM 3.7 mmol/L (3.5-5.1); SODIUM 136 mmol/L (136-145)
[2020-11-14 16:36] LABS: CLARITY,URINE HAZY (CLEAR); COLOR,URINE YELLOW (YELLOW); KETONES,URINE 2+ (NEGATIVE); LEUKOCYTE ESTERASE ,URINE SMALL (NEGATIVE); NITRITE,URINE NEGATIVE (NEGATIVE); PROTEIN,URINE DIPSTICK NEGATIVE (NEGATIVE); URINE UROBILINOGEN 0.2 mg/dL (0.2 - 1)
[2020-11-14 16:39] LABS: AMORPHOUS SEDIMENT,URINE FEW (FEW); BACTERIA,URINE FEW /HPF; EPITHELIAL CELLS,URINE MODERATE /LPF; MUCUS,URINE FEW (RARE)
[2020-11-14] MEDS ORDERED: IOPAMIDOL 370 MG/ML 200 ML INFUS..BTL INJ ONE (16:55)
[2020-11-14] MEDS ORDERED: SODIUM CHLORIDE 0.9% 50ML 50 ML ONE (16:55)
[2020-11-14] MEDS ORDERED: MORPHINE SULFATE INJ 4 MG/ML INJ 1ML IV ONE (17:00)
[2020-11-14] MEDS ORDERED: PIPER-TAZ 3.375 GM 50 ML IV ONE (17:45)
[2020-11-14] MEDS ORDERED: PIPERACILLIN/TAZOBAC 3.375 GM in SODIUM CHLORIDE 0.9% 50ML 50 ML IV ONE (18:00)
[2020-11-14] MEDS ORDERED: ANUSOL-HC25 MG RC (18:48)
[2020-11-14] MEDS ORDERED: DICYCLOMINE HCL10 MG PO (18:48)
[2020-11-14] MEDS ORDERED: PANTOPRAZOLE SO40 MG PO (18:48)
== END 2020-11-14 18:58 | disposition home or self-care (01) ==
LOC: ER 15:24
DX: K62.89 Other specified diseases of anus and rectum (principal); I10 Essential (primary) hypertension; E11.9 Type 2 diabetes mellitus without complications; E03.9 Hypothyroidism, unspecified; K21.9 Gastro-esophageal reflux disease without esophagitis; F31.9 Bipolar disorder, unspecified; Z98.84 Bariatric surgery status
CPT/HCPCS: 36415; 74177; 80053; 81001; 81025; 82270; 83735; 84702; 85025; 85610; 85730; 87040; 87086; 99284; C9113; J0500; J2270; J2405; J2543; J7030; Q9967

== ENCOUNTER → 2022-09-01 | Outpatient (CLI) | payer MEDICARE ==
[~2022-09-01] MED LIST changes: +ANUSOL-HC25 MG RC; +DEXMEDETOMIDINE HCL 2 ML ONE; +DICYCLOMINE HCL10 MG PO; +LIDOCAINE HCL 2% LOCAL INJ 5 ML SDV VIAL INJ ONE; +MIDAZOLAM HCL 2 MG/2 ML VIAL ONE; +MIDAZOLAM HCL 5 MG/ML VIAL ONE; +PANTOPRAZOLE SO40 MG PO; +POVIDONE IODINE 0.05% 0.05 % ML PO ONE; +PROPOFOL IV EMULSION 10 MG/ML 20 ML VIAL ONE; +b12
== END ==
LOC: MRI 09:39
PROVIDERS: ATTEND Psychiatry & Neurology Neurology
DX: I63.9 Cerebral infarction, unspecified (principal)
CPT/HCPCS: 36415; 70551; 82948; 93005; J2001; J2250 ×2; J2704

== ENCOUNTER → 2022-10-16 | Day surgery (SDC) | payer MEDICARE ==
[~2022-10-16] MED LIST changes: -DEXMEDETOMIDINE HCL 2 ML ONE; +GLYCOPYRROLATE INJ 0.2 MG/ML VIAL ONE; +KETAMINE HCL INJ 50 MG/ML 10 ML VIAL ONE; +LACTATED RINGER'S 1,000 ML ONE; +METOPROLOL TART50 MG PO; -MIDAZOLAM HCL 5 MG/ML VIAL ONE; +ONDANSETRON HCL INJ 2MG/ML 2ML 2 MG/ML VIAL ONE
[2022-10-16 08:10] VITALS: BP 135/97
== END | disposition home or self-care (01) ==
LOC: ENDO 06:36
PROVIDERS: ATTEND Surgery
DX: K21.9 Gastro-esophageal reflux disease without esophagitis (principal); K29.50 Unspecified chronic gastritis without bleeding; K20.90 Esophagitis, unspecified without bleeding; K25.9 Gastric ulcer, unspecified as acute or chronic, without hemorrhage or perforation; K44.9 Diaphragmatic hernia without obstruction or gangrene; G47.33 Obstructive sleep apnea (adult) (pediatric); E11.9 Type 2 diabetes mellitus without complications; I10 Essential (primary) hypertension; E66.01 Morbid (severe) obesity due to excess calories; Z79.899 Other long term (current) drug therapy; Z68.41 Body mass index [BMI] 40.0-44.9, adult
CPT/HCPCS: 43239; 81025; 88305; 88342; J2001; J2250; J2405; J2704; J7121; 88304